=== PATIENT | male | born 1990 | race Caucasian/White ===

== ENCOUNTER 2023-02-17 16:12 | Outpatient (REF) | payer OTHER, SELFPAY ==
--- NOTE | ~2023-02-17 | XR_ITS ---
EXAMINATION: XR KNEE, LEFT CLINICAL INFORMATION: M25.562 - Pain in left knee COMPARISON: None available. TECHNIQUE: Four views of the left knee. FINDINGS: Normal bony mineralization. No fracture, dislocation, destructive process, or effusion. Hoffa's fat pad appears normal. There is no joint narrowing or erosive change or chondrocalcinosis. There is minor spurring at the anterior tibial tubercle near the patellar tendon insertion. The deep infrapatellar recess is preserved. XR/XR knee LT 4V IMPRESSION: - No joint narrowing or erosive change. No effusion. - Minor spurring anterior tibial tubercle near the patellar tendon insertion.
== END 2023-02-17 16:13 | disposition home or self-care (01) ==
LOC: HO.HMGCX 16:12
PROVIDERS: Visit Provider Internal Medicine
DX: M25.562 Pain in left knee (principal)
CPT/HCPCS: 73564

== ENCOUNTER 2023-05-12 11:53 | Outpatient (REF) | payer OTHER, SELFPAY ==
[2023-05-12 15:01] LABS: Appearance Urine Clear; Color Urine Yellow; Glucose Urine UA Negative (Negative); Leukocyte Esterase Urine Negative (Negative); Nitrite Urine Negative (Negative); PH 5.5 (5.0-9.0); Specific Gravity - Urine 1.025 (1.005-1.025); Urine Blood Negative (Negative); Urine Ketones Negative (Negative); Urine Protein Negative (Neg-Trace)
[2023-05-12 15:06] LABS: Alanine Aminotransferase 80 U/L (0-40); Albumin Level 4.8 g/dL (3.5-5.0); Alkaline Phosphatase 91 U/L (39-117); Anion Gap 15 (12-20); Aspartate Amino Transferase 50 U/L (5-37); Bilirubin Total 1.4 mg/dL (0.0-1.0); Blood Urea Nitrogen 12 mg/dL (9-16); Calcium 9.7 mg/dL (8.4-10.2); Carbon Dioxide 23 mmol/L (22-29); Chloride 107 mmol/L (96-108); Cholesterol 209 mg/dL; Estimated Glomerular Filt Rate > 60; Glucose Fasting 82 mg/dL (60-99); HDL Cholesterol 35 mg/dL; LDL Cholesterol Calculated 152 mg/dl; Potassium 4.1 mmol/L (3.3-5.1); Sodium 141 mmol/L (135-145); Total Protein 7.7 g/dL (6.5-8.0); Triglycerides 113 mg/dL
[2023-05-12 15:24] LABS: TSH reflex Free T4 0.17 uIU/mL (0.32-4.0)
[2023-05-12 15:44] LABS: Creatinine Urine 247.34 mg/dL
[2023-05-13 03:38] LABS: Syphilis Screen Nonreactive (Nonreactive)
[2023-05-13 03:53] LABS: HBS Num1 3.89 mIU/mL (0-7.99); HBc Num1 0.09 S/CO (0.00-0.79); HBsAGNum1 0.54 S/CO (0.00-0.99); HIV AB/AG Nonreactive (Nonreactive); HIV Num 1 0.06 S/CO (0.00-0.99); Hepatitis B Core Antibody Nonreactive (Nonreactive); Hepatitis B Surface Antigen Negative (Negative); ~HepC Num1 0.16 S/CO (0.00-0.79); ~Hepatitis B Surface Antibody NONREACTIVE (Nonreactive); ~Hepatitis C Antibody Nonreactive (Nonreactive)
[2023-05-13 14:58] LABS: CT PCR NOT DETECTED (Not Detect.); NG PCR NOT DETECTED (Not Detect.)
== END 2023-05-12 11:54 | disposition home or self-care (01) ==
LOC: HO.WFDLDS 11:53
PROVIDERS: Visit Provider Family Medicine
DX: Z00.00 Encounter for general adult medical examination without abnormal findings (principal); Z11.3 Encounter for screening for infections with a predominantly sexual mode of transmission; Z11.4 Encounter for screening for human immunodeficiency virus [HIV]; I10 Essential (primary) hypertension
CPT/HCPCS: 0353U; 80053; 80061; 81003; 82043; 84439; 84443; 86704; 86706; 86780; 86803; 87340; 87389

== ENCOUNTER 2023-05-14 10:13 | Outpatient (REF) | payer OTHER, SELFPAY ==
[2023-05-14 12:28] LABS: Anion Gap 10 (12-20); Blood Urea Nitrogen 11 mg/dL (9-16); Calcium 9.7 mg/dL (8.4-10.2); Carbon Dioxide 27 mmol/L (22-29); Chloride 108 mmol/L (96-108); Estimated Glomerular Filt Rate > 60; Glucose Random 80 mg/dL (60-115); Potassium 4.1 mmol/L (3.3-5.1); Sodium 141 mmol/L (135-145)
[2023-05-14 12:39] LABS: Free T4 (Free Thyroxine) 0.85 ng/dL (0.71-1.85)
[2023-05-15 05:08] LABS: Triiodothyronine T3 Total 126 ng/dL (76-181)
== END 2023-05-14 10:14 | disposition home or self-care (01) ==
LOC: HO.10HDL 10:13
PROVIDERS: Visit Provider Family Medicine
DX: Z00.00 Encounter for general adult medical examination without abnormal findings (principal); R94.6 Abnormal results of thyroid function studies
CPT/HCPCS: 36415; 80048; 84439; 84443; 84480

== ENCOUNTER 2023-11-19 14:51 | Outpatient (AMB) | payer OTHER, SELFPAY ==
--- NOTE | 2023-11-19 14:53 | A.OFFPC_ITS ---
Vital Signs 11/19/23 14:55 Height 6 ft 2 in Weight 259 lb BMI 33.2 BP 120/76 Blood Pressure Location Lt brachial Position Sitting Pulse 100 Pulse Source Pulse Oximeter Pulse Oximetry (%) 97 Oxygen Delivery Method Room Air Intake Visit Reasons: Discuss Gastro Referral Intake Note: Patient is here torequest Gastro referral, and is experiencing loose stool, diet is good, mother has history of UC. Allergies amoxicillin Allergy (Mild, Verified 11/19/23 15:00) Hives Tobacco use date assessed: 11/19/23 HPI Discuss Gastro Referral HPI Details Pt presents to f/u anxiety/depression and to discuss a GI referral. No recent labs to review. Had added sertraline and added hydroxyzine. Decreased bupropion to 150mg. Pt is requesting a GI referral for diarrhea. Pt reports hx of ulcerative colitis. [facility] Medical History Anxiety Bipolar 1 disorder Depression Family History Paternal Grandfather Cardiovascular disease Family/Other Alcoholism Social History Housing: House Patient Tobacco Use Status: Never used Tobacco e-Cigarette/Vaping Use: Never Used Second Hand Smoke Exposure: No service: No Current occupational status: employed Cognitive needs: No Hearing needs: No Vision needs: No Questionnaire PHQ-9 Over the last 2 weeks, how often have you been bothered by any of the following problems? 1. Little interest or pleasure in doing things: not at all 2. Feeling down, depressed, or hopeless: not at all 3. Trouble falling or staying asleep, or sleeping too much: not at all 4. Feeling tired or having little energy: not at all 5. Poor appetite or overeating: not at all 6. Feeling bad about yourself - or that you are a failure or have let yourself or your family down: not at all 7. Trouble concentrating on things, such as reading the newspaper or watching television: not at all 8. Moving or speaking so slowly that other people could have noticed. Or the opposite - being so fidgety or restless that you have been moving around a lot more than usual: not at all 9. Thoughts that you would be better off or of hurting yourself in some way: not at all Total score: 0 Depression Screening Interpretation: Negative Depression Screening Done: Yes Source: Developed by Drs. Home Lilly, Mar Espinosa, Dennis Granado and colleagues, with an educational kim from [employer]. Thrive Questionnaire Date Thrive assessed: 11/19/23 I am a: Patient What is your living situation today?: I have a steady place to live Within the past 12 months, did the food you bought not last and you didn't have the money to get more?: Sometimes True Within the past 12 months, did you worry whether your food would run out before you got money to buy more?: Sometimes True Do you have trouble paying for medicines?: No Do you have trouble getting transportation to medical appointments?: No Do you have trouble paying your heating and electricity bill?: No Do you have trouble taking care of your child, family member or friend?: No Do you have trouble with day-to-day activities such as bathing, preparing meals, shopping, managing finances, etc.?: No Are you currently unemployed and looking for a job?: No Are you interested in more education?: Yes THRIVE Score: 2 AUDIT C Alcohol Use Questionnaire (AUDIT-C) 1. How often do you have a drink containing alcohol?: Never 3. How often do you have six or more drinks on one occasion?: Never Total Score: 0 CHIQUI-7 AMB Questionnaire CHIQUI-7 Date CHIQUI - 7 assessed: 12/02/22 Feeling nervous, anxious, or on edge: 0 = Not at all Not being able to stop or control worryin = Not at all Worrying too much about different things: 0 = Not at all Trouble relaxin = Not at all Being so restless that it is hard to sit still: 0 = Not at all Becoming easily annoyed or irritable: 0 = Not at all Feeling afraid as if something awful might happen: 0 = Not at all Total CHIQUI-7 score (0-4 normal; 5-9 mild; 10-14 moderate; 15-21 severe): 0 Source: Developed by Mar Cervantes Kurt Kroenke a nd colleagues, with an educational kim from [employer]. Physical exam (Primary Care) Vital Signs: Last Vital Signs Pulse 100 11/19/23 14:55 BP 120/76 11/19/23 14:55 Pulse Ox 97 11/19/23 14:55 Oxygen Delivery Method Room Air 11/19/23 14:55 BMI result Body Mass Index 33.2 Tobacco/Smoking Status: Tobacco use Status Tobacco use date assessed 11/19/23 11/19/23 15:01 Patient Tobacco Use Status Never used Tobacco 11/19/23 14:55 e-Cigarette/Vaping Use Never Used 11/19/23 14:55 PHQ-9: PHQ-9 Score PHQ-9: Total score 0 11/19/23 15:04 Depression Screening Interpretation: Negative Thrive Assessment: Date of Thrive Assessment Date Thrive assessed 11/19/23 11/19/23 15:04 Assessment and Plan Assessment & Plan (1) Diarrhea: Code(s): R19.7 - Diarrhea, unspecified Plan: Patient?notes?months?of?loose?stools?and?diarrhea. He?has?a?family?history?of?ulcerative?colitis?and?would?like?a?referral?to?gastr oenterology.??Referral?made Also?has?elevated?liver?enzymes (2) Elevated liver enzymes: Code(s): R74.8 - Abnormal levels of other serum enzymes Plan: Likely?fatty?liver?disorder.??Encouraged?weight?loss Referred?patient?to?Gastroenterology?as?above?and?they?can?follow- up?on?this?if?not?improved Orders: Orders Triiodothyronine T3 Total Today E03.9 - Hypothyroidism, unspecified, R79.89 - Other specified abnormal findings of blood chemistry Thyroid Stimulating Hormone Today E03.9 - Hypothyroidism, unspecified, R79.89 - Other specified abnormal findings of blood chemistry Comprehensive [place]. Panel Fast Today R19.7 - Diarrhea, unspecified, Z00.00 - Encounter for general adult medical examination without abnormal findings Free T4 (Free Thyroxine) Today E03.9 - Hypothyroidism, unspecified, R79.89 - Other specified abnormal findings of blood chemistry Testosterone, Free/Total Today F41.8 - Other specified anxiety disorders Referrals Gastroenterology Referral R19.7 - Diarrhea, unspecified, R74.8 - Abnormal levels of other serum enzymes Coding Level of Care Code Est Pt Level 3 (26523) Diagnoses Diarrhea R19.7 Elevated liver enzymes R74.8
[2023-11-19 14:55] VITALS: BP 120/76; PULSE 100; O2SAT 97; BMI 33.2
== END 2023-11-19 15:22 | disposition home or self-care (01) ==
PROVIDERS: PCP Family Medicine; Visit Provider Family Medicine
DX: R19.7 Diarrhea, unspecified (principal); R74.8 Abnormal levels of other serum enzymes; F41.8 Other specified anxiety disorders
CPT/HCPCS: 99213